=== PATIENT | male | born 1970 | race American Indian/Alaskan Native ===

== ENCOUNTER 2019-01-06 12:17 | Emergency (ER) | payer MEDICARE ==
[2019-01-06 12:56] VITALS: BP 149/98
--- NOTE | 2019-01-06 13:00 | Emergency Department Report ---
Chief Complaint: Extremity Injury, Lower Stated Complaint: RT FOOT FRACTURE Time Seen by Provider: 01/06/19 12:55 - HPI History of Present Illness: This is a 48-year-old male nontoxic, well in appearance with no signs of distress presents to the ED with a cast to be placed to right foot. Patient was seen 2 weeks ago by PCP and was sent to see Dr. Santoyo. Patient stated had a fracture 2 weeks. Patient was sent to orthopedic doctor in [place], [place] for a cast but patient stated was too far. Denies any numbness or decreased sensation. Patient denies any fever, chills, headache, nausea, vomiting, chest pain or shortness of breathe. Denies any allergies. - ROS Review of Systems: Neurovascular intact. No numbness or tingling. Normal cap refill. MSE screening note: Focused history and physical exam performed. Due to findings the following was ordered: ED Medical Decision Making - Medical Decision Making Patient is discharged to follow-up with orthopedic doctor. Patient does have a soft splint on. Neurovascular intact. Patient was instructed to Follow-up with a primary care doctor in 3-5 days or if symptoms worsen and continue return to emergency room as soon as possible. At time of discharge, the patient does not seem toxic or ill in appearance. No acute signs of distress noted. Patient agrees to discharge treatment plan of care. No further questions noted by the patient. ED Disposition for MSE Clinical Impression: Referred to doctor Disposition: DC-01 TO HOME OR SELFCARE Is pt being admited?: No Does the pt Need Aspirin: No Condition: Stable Additional Instructions: Follow-up with a orthopedic doctor in 3-5 days or if symptoms worsen and continue return to the emergency department as soon as possible. Referrals: PRIMARY MD MADYSON [Referring] - 3-5 Days PAUL CORDERO MD [Staff Physician] - 3-5 Days [facility] [Outside] - 3-5 Days
== END 2019-01-06 13:16 | disposition home or self-care (01) ==
LOC: ED 12:17
DX: Z47.89 Encounter for other orthopedic aftercare (principal)
CPT/HCPCS: 99282

== ENCOUNTER 2019-01-10 16:09 | Outpatient (CLI) | payer MEDICARE ==
--- NOTE | 2019-01-10 20:08 | XRay Report ---
PROCEDURE: XR FOOT 3+V RT TECHNIQUE: Right foot radiographs, AP, lateral, and oblique views. HISTORY: UNSPECIFIED FRACTURE OF RIGHT TOE, CLOSED FRACTURE COMPARISONS: None . FINDINGS: Fracture (s) and/or Dislocation(s): An oblique fracture is noted involving the distal fibula. Bones of the foot are intact. . Alignment: Normal . Joint space(s): Normal . Soft tissues: Normal . Bone mineralization: Normal . Foreign bodies: None . Calcaneal spurring: None . IMPRESSION: Oblique fracture distal fibula. Additionally views of the right ankle are recommended.. This document is electronically signed by Kei Newton MD., January 10 2019 08:06:06 PM ET
--- NOTE | 2019-01-10 20:53 | XRay Report ---
PROCEDURE: XR ANKLE 3+V RT TECHNIQUE: Right ankle radiographs, AP, lateral, and oblique views. HISTORY: UNSPECIFIED FRACTURE OF RIGHT TOE, CLOSED FRACTURE COMPARISONS: None . FINDINGS: Fracture (s) and/or Dislocation(s): An oblique fracture is noted involving the distal fibula without significant displacement. . Alignment: Normal . Joint space(s): There is mild degree increased in the distal tibiofibular and talofibular joint spac es. . Soft tissues: Moderate degree soft tissue swelling is noted . Bone mineralization: Normal . Foreign bodies: None . Calcaneal spurring: None . IMPRESSION: Acute fracture distal fibula with subluxation of distal tibiofibular and ankle joints. This document is electronically signed by Kei Newton MD., January 10 2019 08:51:14 PM ET
== END 2019-01-10 16:10 | disposition home or self-care (01) ==
LOC: XRAY 16:09
PROVIDERS: ATTEND Orthopaedic Surgery
DX: S82.831A Other fracture of upper and lower end of right fibula, initial encounter for closed fracture (principal); S93.01XA Subluxation of right ankle joint, initial encounter; X58.XXXA Exposure to other specified factors, initial encounter; Y93.89 Activity, other specified; Y92.89 Other specified places as the place of occurrence of the external cause; Y99.8 Other external cause status

== ENCOUNTER 2020-12-10 16:53 | Emergency (ER) | payer MEDICARE ==
[2020-12-10] MEDS ORDERED: IBUPROFEN 800 MG TAB PO ONE (17:34)
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
[2020-12-10 18:42] VITALS: BP 155/89
== END 2020-12-10 20:31 | disposition home or self-care (01) ==
LOC: ED 16:53
DX: M79.10 Myalgia, unspecified site (principal); I10 Essential (primary) hypertension; E11.9 Type 2 diabetes mellitus without complications; F17.200 Nicotine dependence, unspecified, uncomplicated; Z98.890 Other specified postprocedural states; Z79.1 Long term (current) use of non-steroidal anti-inflammatories (NSAID); Z79.84 Long term (current) use of oral hypoglycemic drugs; Z79.899 Other long term (current) drug therapy; V49.59XA Passenger injured in collision with other motor vehicles in traffic accident, initial encounter; Y93.89 Activity, other specified; Y92.410 Unspecified street and highway as the place of occurrence of the external cause; Y99.8 Other external cause status
CPT/HCPCS: 99282